=== PATIENT | female | born 1985 | race Two or more races ===

== ENCOUNTER 2022-09-14 09:36 | Emergency (ER) | payer OTHER ==
[~2022-09-14] VITALS: Ht 165.1 cm; Wt 83.5 kg
== END 2022-09-14 14:24 | disposition home or self-care (01) ==
LOC: ER 09:36
DX: T78.49XA Other allergy, initial encounter (principal)

== ENCOUNTER 2024-12-05 10:04 | Outpatient (CLI) | payer OTHER | END 2024-12-05 10:12 | disposition home or self-care (01) | LOC: TOM 10:04 | DX: N70.11 Chronic salpingitis (principal) ==